=== PATIENT | male | born 1950 | race Caucasian/White ===

== ENCOUNTER → 2020-02-09 | Outpatient (CLI) | payer MEDICARE ==
[~2020-02-09] MED LIST: GADODIAMIDE 10 MMOL/20 ML VIAL IV ONE
== END | disposition home or self-care (01) ==
LOC: RAH 12:37
PROVIDERS: ATTEND Family Medicine
DX: H53.40 Unspecified visual field defects (principal)
CPT/HCPCS: 70553; A9579

== ENCOUNTER → 2021-10-18 | Outpatient (CLI) | payer MEDICARE | END | disposition home or self-care (01) | LOC: RAH 09:24 | PROVIDERS: ATTEND Family Medicine | DX: I67.82 Cerebral ischemia (principal); G31.9 Degenerative disease of nervous system, unspecified; H53.9 Unspecified visual disturbance; R51.9 Headache, unspecified | CPT/HCPCS: 70551 ==

== ENCOUNTER 2022-10-02 11:07 | Emergency (ER) | payer MEDICARE ==
[~2022-10-02] VITALS: Ht 175.3 cm; Wt 127.0 kg
[2022-10-02 11:43] LABS: BASOPHILS % (AUTO) 0.3 % (0.0-5.0); EOSINOPHILS % (AUTO) 0.5 % (0.0-8.0); HEMATOCRIT 45.1 % (42-54); LYMPHOCYTES % (AUTO) 14.3 % (21.0-51.0); MEAN CORPUSCULAR HEMOGLOBIN 33.3 pg (27.0-33.0); MEAN CORPUSCULAR HGB CONC 33.5 g/dL (32.0-36.0); MEAN CORPUSCULAR VOLUME 99.3 fL (79-99); MONOCYTES % (AUTO) 5.8 % (3.0-13.0); NEUTROPHILS % (AUTO) 78.8 % (40.0-77.0); PLATELET COUNT (AUTO) 185 K/uL (130-400); RED BLOOD CELL COUNT(AUTO) 4.54 MIL/uL (4.50-6.20); RED CELL DISTRIBUTION WIDTH 13.4 % (11.0-15.5); WHITE BLOOD COUNT (AUTO) 7.6 K/uL (4.8-10.8)
[2022-10-02 11:55] LABS: CREATININE 0.9 mg/dL (0.5-1.5)
[2022-10-02 11:59] LABS: ALBUMIN 3.9 g/dL (3.5-5.0); TOTAL PROTEIN, SERUM 8.2 g/dL (6.0-8.3)
[2022-10-02] MEDS ORDERED: MECLIZINE HCL 25 MG TABLET PO ONE (12:00)
[2022-10-02] MEDS ORDERED: MECL-262 PO (15:17)
[2022-10-02 15:18] LABS: APPEARANCE,URINE CLEAR (CLEAR); BILIRUBIN,URINE NEGATIVE (NEGATIVE); COLOR,URINE COLORLESS (YELLOW); GLUCOSE, URINE (UA) NEGATIVE (NEGATIVE); KETONES,URINE 10 mg/dL (NEGATIVE); LEUKOCYTE ESTERASE ,URINE NEGATIVE Leu/uL (NEGATIVE); NITRATE,URINE NEGATIVE (NEGATIVE); OCCULT BLOOD,URINE NEGATIVE (NEGATIVE); PH,URINE 7.5 (5.0-8.0); PROTEIN,URINE NEGATIVE (NEGATIVE); UROBILINOGEN,URINE 0.2 mg/dL (0.2-1.0)
[2022-10-02 15:29] LABS: SQUAMOUS EPITHELIAL CELL,UR RARE /HPF (0-2)
[2022-10-02 15:35] VITALS: BP 122/78
== END 2022-10-02 15:40 | disposition home or self-care (01) ==
LOC: EDH 11:07
DX: H83.09 Labyrinthitis, unspecified ear (principal); I10 Essential (primary) hypertension; Z98.890 Other specified postprocedural states
CPT/HCPCS: 36415; 70450; 80053; 81001; 84484; 85025; 93005

== ENCOUNTER → 2023-02-14 | Outpatient (CLI) | payer MEDICARE ==
[~2023-02-14] MED LIST changes: -GADODIAMIDE 10 MMOL/20 ML VIAL IV ONE; +MECL-262 PO
== END | disposition home or self-care (01) ==
LOC: RAH 09:37
PROVIDERS: ATTEND Pain Medicine Interventional Pain Medicine
DX: M47.816 Spondylosis without myelopathy or radiculopathy, lumbar region (principal); M48.07 Spinal stenosis, lumbosacral region; M41.26 Other idiopathic scoliosis, lumbar region; M25.561 Pain in right knee; M25.562 Pain in left knee; M54.50 Low back pain, unspecified
CPT/HCPCS: 72100

== ENCOUNTER → 2025-01-18 | Outpatient (CLI) | payer MEDICARE ==
[~2025-01-18] MED LIST changes: +APIX5TAB PO; +DOXY100C5 PO; +HYDR-4068 PO; -MECL-262 PO; +METO25TA6 PO; +SOLI5 PO; +TRAZ150T79 PO
--- NOTE | 2025-01-18 16:10 | HMCIMG ---
PA AND LATERAL CHEST RADIOGRAPH INDICATION: COUGH COMPARISON: 12/20/2024 CTA chest FINDINGS: Heart size is normal. Mild calcific plaque is present along the aortic arch lai. The pulmonary vascularity and [place]ron[place] appear normal. No abnormal pulmonary parenchymal opacity or consolidation identified. No significant pleural effusion noted. No pneumothorax detected. IMPRESSION: No radiographic evidence for any acute cardiopulmonary process.
== END | disposition home or self-care (01) ==
LOC: RAH 15:33
PROVIDERS: ATTEND Family Medicine
DX: R05.9 Cough, unspecified (principal); I70.0 Atherosclerosis of aorta
CPT/HCPCS: 71046